=== PATIENT | female | born 1970 | race Two or more races ===

== ENCOUNTER 2020-09-20 18:38 | Emergency (ER) | payer OTHER ==
[~2020-09-20] VITALS: Ht 154.9 cm; Wt 84.4 kg
== END 2020-09-20 22:38 | disposition home or self-care (01) ==
LOC: ER 18:38
DX: U07.1 COVID-19 (principal); J45.998 Other asthma

== ENCOUNTER 2020-09-23 13:36 | Outpatient (CLI) | payer OTHER | END 2020-09-23 16:11 | disposition home or self-care (01) | LOC: ASH CLINIC 13:36 | PROVIDERS: ATTEND General Practice | DX: Z23 Encounter for immunization (principal); U07.1 COVID-19 ==

== ENCOUNTER 2020-12-06 08:00 | Outpatient (CLI) | payer OTHER | END 2020-12-06 08:30 | disposition home or self-care (01) | LOC: PPH VACUNA 08:00 | DX: Z23 Encounter for immunization (principal) ==

== ENCOUNTER 2020-12-26 08:00 | Outpatient (CLI) | payer OTHER | END 2020-12-26 08:30 | disposition home or self-care (01) | LOC: PPH VACUNA 08:00 | DX: Z23 Encounter for immunization (principal) ==

== ENCOUNTER 2021-01-23 12:17 | Inpatient (IN) | payer OTHER ==
[~2021-01-23] VITALS: Ht 154.9 cm; Wt 86.6 kg
[2021-02-05] MEDS ORDERED: FLUCONAZOLE150 MG PO (10:41)
[2021-02-05] MEDS ORDERED: AMOX1TAB5 PO (10:42)
== END 2021-02-05 12:37 | disposition home or self-care (01) | DRG 758 ==
LOC: ER 12:17 → OB/GYN 21:07
PROVIDERS: ADMIT Obstetrics & Gynecology; ATTEND Obstetrics & Gynecology
PROC: BW211ZZ Computerized Tomography (CT Scan) of Abdomen and Pelvis using Low Osmolar Contrast (ICD-10-PCS; 2021-01-23)
PROC: 0W9J30Z Drainage of Pelvic Cavity with Drainage Device, Percutaneous Approach (ICD-10-PCS; principal; 2021-01-26)
PROC: BU4CZZZ Ultrasonography of Uterus and Ovaries (ICD-10-PCS; 2021-01-26)
PROC: BW2110Z Computerized Tomography (CT Scan) of Abdomen and Pelvis using Low Osmolar Contrast, Unenhanced and Enhanced (ICD-10-PCS; 2021-01-31)
DX: N70.03 Acute salpingitis and oophoritis (principal); K57.32 Diverticulitis of large intestine without perforation or abscess without bleeding; N83.292 Other ovarian cyst, left side; J45.909 Unspecified asthma, uncomplicated

== ENCOUNTER 2021-03-29 08:00 | Outpatient (CLI) | payer OTHER ==
[~2021-03-29 08:00] MED LIST: AMOX1TAB5 PO; FLUCONAZOLE150 MG PO
== END 2021-03-29 08:30 | disposition home or self-care (01) ==
LOC: PPH VACUNA 08:00
PROVIDERS: ATTEND Emergency Medicine Pediatric Emergency Medicine
DX: Z23 Encounter for immunization (principal)

== ENCOUNTER 2021-06-16 10:00 | Outpatient (CLI) | payer OTHER | END 2021-06-16 10:15 | disposition home or self-care (01) | LOC: PPH VACUNA 10:00 | PROVIDERS: ATTEND Emergency Medicine Pediatric Emergency Medicine | DX: Z23 Encounter for immunization (principal) | CPT/HCPCS: 90686; G0008 ==

== ENCOUNTER 2021-08-04 08:25 | Outpatient (CLI) | payer OTHER | END 2021-08-04 08:33 | disposition home or self-care (01) | LOC: MRI 08:25 | PROVIDERS: ATTEND Obstetrics & Gynecology Gynecology | DX: D25.1 Intramural leiomyoma of uterus (principal); N84.0 Polyp of corpus uteri | CPT/HCPCS: 72197 ==

== ENCOUNTER 2022-03-14 13:00 | Outpatient (CLI) | payer OTHER | END 2022-03-14 13:05 | disposition home or self-care (01) | LOC: PPH VACUNA 13:00 | PROVIDERS: ATTEND Emergency Medicine Pediatric Emergency Medicine | DX: Z23 Encounter for immunization (principal) ==

== ENCOUNTER 2022-03-14 13:07 | Outpatient (CLI) | payer OTHER | END 2022-03-14 13:17 | disposition home or self-care (01) | LOC: PPH VACUNA 13:07 | PROVIDERS: ATTEND Emergency Medicine Pediatric Emergency Medicine | DX: Z23 Encounter for immunization (principal) ==

== ENCOUNTER 2022-04-20 08:56 | Inpatient (IN) | payer OTHER ==
[~2022-04-20] VITALS: Ht 154.9 cm; Wt 81.6 kg
--- NOTE | 2022-04-20 09:14 | NUR ---
SE RECIBE FEMINA DE 52 ANOS ALERTA Y ORIENTADA X3. REFIERE DOLOR DE PECHO HOY A LAS 0845. SE MIDEN S/V Y SE REALIZA EKG. SE PRESENTA A YUNI. RENTA Y SE UBICA EN TRUDY #13 ANDRES ORDEN MEDICA. BARANDAS ELEVADAS POR SEGURIDAD. PENDIENTE EVALUACION MEDICA.
--- NOTE | 2022-04-20 17:41 | NUR ---
IV LINE IS STARTED ON PATIENT'S ARM AND BLOOD SAMPLES ARE COLLECTED. IV MED IS ADMINSITERED AND PATIENT IS CONNECTED TO TELEMETRY AND OXIMETRY WITH RAILINGS ELEVATED IN BED. PATIENT REMAINS IN OBSERVATION FOR ANY CHANGES TO HER CONDITION.
== END 2022-04-23 15:37 | disposition designated cancer center or children's hospital (05) | DRG 282 ==
LOC: ER 08:56 → SEC-K 19:00 → SURG 19:00
PROVIDERS: ADMIT Internal Medicine; ATTEND Internal Medicine
PROC: 4A12X4Z Monitoring of Cardiac Electrical Activity, External Approach (ICD-10-PCS; principal; 2022-04-20)
PROC: B246ZZZ Ultrasonography of Right and Left Heart (ICD-10-PCS; 2022-04-20)
DX: I24.9 Acute ischemic heart disease, unspecified (principal); I21.4 Non-ST elevation (NSTEMI) myocardial infarction; Z20.822 Contact with and (suspected) exposure to COVID-19

== ENCOUNTER 2023-07-30 06:59 | Emergency (ER) | payer OTHER ==
[~2023-07-30] VITALS: Ht 152.4 cm; Wt 86.2 kg
[2023-07-30] MEDS ORDERED: CYCLOBENZAPRINE10 MG PO (10:07)
== END 2023-07-30 10:18 | disposition home or self-care (01) ==
LOC: ER 07:00
DX: M54.2 Cervicalgia (principal); V43.52XA Car driver injured in collision with other type car in traffic accident, initial encounter; Y93.89 Activity, other specified; Y92.413 State road as the place of occurrence of the external cause; M54.50 Low back pain, unspecified

== ENCOUNTER 2024-05-01 13:20 | Outpatient (CLI) | payer OTHER ==
[~2024-05-01 13:20] MED LIST changes: +CYCLOBENZAPRINE10 MG PO
== END 2024-05-01 13:30 | disposition home or self-care (01) ==
LOC: PPH VACUNA 13:20
PROVIDERS: ATTEND Emergency Medicine Pediatric Emergency Medicine
DX: Z23 Encounter for immunization (principal)

== ENCOUNTER 2024-09-07 00:17 | Emergency (ER) | payer OTHER ==
[~2024-09-07] VITALS: Ht 154.9 cm; Wt 88.5 kg
[2024-09-07] MEDS ORDERED: CEFTRIAXONE SODIUM 1,000 MG VIAL IM STA (02:56)
== END 2024-09-07 08:03 | disposition designated cancer center or children's hospital (05) ==
LOC: ER 00:20
DX: S01.511A Laceration without foreign body of lip, initial encounter (principal); W19.XXXA Unspecified fall, initial encounter; Y93.89 Activity, other specified; Y92.814 Boat as the place of occurrence of the external cause; Y99.8 Other external cause status

== ENCOUNTER 2025-04-21 14:00 | Outpatient (CLI) | payer OTHER | END 2025-04-21 14:10 | disposition home or self-care (01) | LOC: PPH VACUNA 14:00 | PROVIDERS: ATTEND Emergency Medicine Pediatric Emergency Medicine | DX: Z23 Encounter for immunization (principal) ==

== ENCOUNTER 2025-06-12 07:42 | Outpatient (CLI) | payer OTHER ==
[2025-06-12 09:44] LABS: BASO % 0.4 % (0.1-1.2); EOS # 0.35 (0.04-0.54); EOS % 5.2 % (0.7-7.0); LYMPH # 1.40 (1.18-3.74); LYMPH % 20.8 % (19.3-53.1); MEAN PLATELET VOLUME 11.60 fl (9.4-12.4); MONO # 0.46 (0.24-0.82); MONO % 6.8 % (4.7-12.5); NEUT # 4.48 (1.56-6.13); NEUT % 66.5 % (34.0-71.1); RED CELL DISTRIBUTION WIDTH 12.4 % (11.6-14.4)
[2025-06-12 11:24] LABS: ALT/SGPT 56.0 U/L (12-78); AST/SGOT 31.0 U/L (15-37); BILIRUBIN TOTAL 1.06 mg/dL (0.3-1.2); BUN CREA RATIO 17.0 (7.0-25.0); CHOL HDL RATIO 4.5 (0-5.0); CREATININE SERUM 0.77 mg/dL (0.55-1.02); GFR 77.83; GLOBULINA 4.0 G/DL (2.4-3.5); GLUCOSE FASTING 166.0 mg/dL (65-100); HDL 37.0 mg/dl (40-60); LDL 104.0 mg/dl (0-130); OSMOLALITY SERUM 291.0 MOSM/KG (275-295); T4 FREE 0.99 NG/ML (0.76-1.46); TSH 1.52 uIU/mL (0.358-3.74); VLDL 23.0 (0-39)
[2025-06-13 08:15] LABS: URINE APPEARANCE Clear; URINE BILIRRUBIN Negative (NEGATIVE); URINE BLOOD Negative; URINE COLOR Yellow; URINE GLUCOSE Negative (NEGATIVE); URINE KETONE Negative (NEGATIVE); URINE LEUKOCYTE Negative; URINE NITRATE Negative; URINE PROTEIN Negative (NEGATIVE); URINE UROBILINOGEN 1.0 E.U./dl
[2025-06-13 08:18] LABS: URINE BACTERIA 631.4 uL (0.0-1933); URINE EPITHELIAL CELLS 3.3 uL (0.0-38.8); URINE RBC 3.5 uL (0.0-20.8); URINE WBC 7.6 uL (0.0-23.2)
[2025-06-13 08:36] LABS: URINE CAST 0.00 uL (0.0-1.40)
[2025-06-13 08:44] LABS: ob NEGATIVE (NEGATIVE)
== END 2025-06-12 07:48 | disposition home or self-care (01) ==
LOC: LAB 07:42
DX: R19.5 Other fecal abnormalities (principal); R73.03 Prediabetes; E03.9 Hypothyroidism, unspecified; E78.5 Hyperlipidemia, unspecified; N39.0 Urinary tract infection, site not specified; E55.9 Vitamin D deficiency, unspecified